=== PATIENT | female | born 1945 | race Caucasian/White ===

== ENCOUNTER → 2023-10-10 07:24 | Outpatient (REF) | payer MEDICARE, BC, SELFPAY ==
[2023-10-10 08:27] LABS: % Basophils 0.8 % (0-2); % Eosinophils 2.2 % (0-6); % Immature Granulocytes 0.2 % (0-0.5); % Lymphocytes 31.8 % (20.5-51.1); % Monocytes 11.2 % (1.7-9.3); % Neutrophils 53.8 % (42.2-75.2); Absolute Eosinophils 0.1 10^3/uL (0-0.7); Absolute Lymphocytes 1.6 10^3/uL (1.2-3.4); Absolute Monocytes 0.6 10^3/uL (0.1-0.6); Absolute Neutrophils 2.7 10^3/uL (1.4-6.5); Hematocrit 43.6 % (37.0-47.0); Hemoglobin 14.8 g/dL (12.0-16.0); Mean Corp Hgb Conc. 33.9 g/dL (33.0-37.0); Mean Corpuscular Hgb 31.3 pg (27.0-31.0); Mean Corpuscular Volume 92.2 fL (81.0-99.0); Mean Platelet Volume 11.4 fL (7.4-10.4); Nucleated Red Blood Cells % 0 %; Platelet Count 227 10^3/uL (130-400); Red Blood Cell Count 4.73 10^6/uL (4.20-5.40); Red Cell Dist. Width 12.4 % (11.5-14.5); White Blood Cell Count 5.1 10^3/uL (4.8-10.8)
[2023-10-10 09:09] LABS: ALT (SGPT) 13 U/L (0-35); AST (SGOT) 23 U/L (14-36); Alkaline Phosphatase 64 U/L (38-126); Blood Urea Nitrogen 21 mg/dl (7-17); C-Reactive Protein < 5.00 mg/L (0.0-10.00); Calcium 9.8 mg/dl (8.4-10.2); Carbon Dioxide 26 mmol/L (22-30); Chloride 105 mmol/L (98-107); Glucose 80 mg/dl (70-99); Magnesium 2.1 mg/dl (1.6-2.3); Phosphorus 4.2 mg/dl (2.5-4.5); Potassium 4.4 mmol/L (3.5-5.1); Sodium 139 mmol/L (135-145); Total Bilirubin 1.2 mg/dl (0.2-1.3); Total Protein 6.1 g/dl (6.3-8.2); eGFR > 60.00
[2023-10-10 09:26] LABS: Vitamin D, 25-OH*** 58.5 ng/mL (30-80)
[2023-10-10 09:31] LABS: Erythrocyte Sed Rate 3 mm/hour (0-20)
[2023-10-10 09:39] LABS: TSH Reflex To Free T4 2.88 uIU/ml (0.47-4.68)
[2023-10-10 10:15] LABS: Folate > 20.0 ng/ml (2.76-20); Vitamin B12 371 pg/ml (239-931)
== END ==
LOC: REG 07:24
PROVIDERS: ATTENDING PHYSICIAN Nurse Practitioner Adult Health
DX: R41.3 Other amnesia (principal)
CPT/HCPCS: 36415; 80053; 82306; 82607; 82746; 83735; 84100; 84443; 85025; 85652; 86140

== ENCOUNTER → 2023-12-11 13:33 | Outpatient (REF) | payer MEDICARE, BC, SELFPAY | LOC: HWWDC 13:33 | PROVIDERS: ATTENDING PHYSICIAN Nurse Practitioner Adult Health | DX: Z12.31 Encounter for screening mammogram for malignant neoplasm of breast (principal); M85.89 Other specified disorders of bone density and structure, multiple sites | CPT/HCPCS: 77063; 77067; 77080 ==

== ENCOUNTER → 2024-03-29 14:35 | Outpatient (REF) | payer MEDICARE, BC, SELFPAY | LOC: PAVMRI 14:35 | PROVIDERS: ATTENDING PHYSICIAN Nurse Practitioner Adult Health | DX: R41.3 Other amnesia (principal) | CPT/HCPCS: 70551 ==

== ENCOUNTER → 2024-06-08 12:45 | Outpatient (REF) | payer MEDICARE, BC, SELFPAY | LOC: HWRAD 12:45 | PROVIDERS: ATTENDING PHYSICIAN Nurse Practitioner Family | DX: R07.81 Pleurodynia (principal) | CPT/HCPCS: 71101 ==

== ENCOUNTER 2024-06-17 16:23 | Emergency (ER) | payer MEDICARE, BC, SELFPAY ==
[2024-06-17 16:32] VITALS: BP 191/75
[2024-06-17 16:41] LABS: Glucose - Point of Care 85 mg/dl (70-99)
[2024-06-17 17:02] VITALS: BP 174/85
[2024-06-17 17:12] VITALS: BMI 24.0
[2024-06-17 17:30] LABS: Hematocrit 41.2 % (37.0-47.0); Hemoglobin 13.7 g/dL (12.0-16.0); Mean Corp Hgb Conc. 33.3 g/dL (33.0-37.0); Mean Corpuscular Hgb 29.8 pg (27.0-31.0); Mean Corpuscular Volume 89.8 fL (81.0-99.0); Mean Platelet Volume 11.2 fL (7.4-10.4); Platelet Count 273 10^3/uL (130-400); Red Blood Cell Count 4.59 10^6/uL (4.20-5.40); Red Cell Dist. Width 12.4 % (11.5-14.5); White Blood Cell Count 7.1 10^3/uL (4.8-10.8)
[2024-06-17 17:38] LABS: ALT (SGPT) 14 U/L (0-35); AST (SGOT) 23 U/L (14-36); Albumin 4.6 g/dl (3.5-5.0); Alkaline Phosphatase 79 U/L (38-126); Blood Urea Nitrogen 18 mg/dl (7-17); Calcium 9.5 mg/dl (8.4-10.2); Carbon Dioxide 24 mmol/L (22-30); Chloride 103 mmol/L (98-107); Estimated Creatinine Clearance 42 ml/min; Glucose 90 mg/dl (70-99); Potassium 4.7 mmol/L (3.5-5.1); Sodium 135 mmol/L (135-145); Total Bilirubin 0.7 mg/dl (0.2-1.3); Total Protein 6.9 g/dl (6.3-8.2); eGFR > 60.00
[2024-06-17 18:00] VITALS: BP 175/87
--- NOTE | 2024-06-17 18:00 | ED.GENMED ---
History of Present Illness
General
Chief Complaint: Blood Pressure Problem
Source: patient
Exam Limitations: none
Time Seen by Provider: 06/17/24 16:52
History of Present Illness
History of Present Illness:
This is 78-year-old female with history of hypertension who presents after her daughter felt at home on the phone she was not quite herself. The patient does admit she has recent headache and admits she fell a few days ago. She is unable to figure
out whether or not the headaches are prior to the fall or since the fall. Her daughter then asked the neighbor to bring her to the emergency department today. The patient was seen by her primary care doctor and was noted to be hypertensive. The
patient does admit that she feels little tremulous and feel like her memory is not sharp. She is not really sure when that started. No fevers. No chest pain. No motor weakness in the arms or legs. No numbness or tingling. No urinary symptoms.
Past History
Past History
ED Past Medical History: COPD and HTN
ED Past Surgical History: Gynecological, Tonsilectomy and Urological (Bladder sling)
Social History
Tobacco: Non-smoker
Alcohol: None
Drug: None
Phy Exam
Physical Exam
Physical Exam:
CONSTITUTIONAL Patient alert and oriented to person, place and time. Well-appearing. Vital signs reviewed.
HEAD atraumatic, normocephalic.
EYES eyelids normal to inspection, Extraocular muscles intact, Conjunctiva normal, Sclera normal.
NECK normal range of motion, Trachea midline, no jugular venous distention.
RESPIRATORY CHEST No respiratory distress noted, Chest expansion equal, Bilateral breath sounds clear.
CARDIOVASCULAR regular rate and rhythm, Heart sounds normal.
ABDOMEN No distention.
BACK normal inspection, no obvious deformities
UPPER EXTREMITY range of motion normal, Motor strength normal, no cyanosis, no edema.
LOWER EXTREMITY range of motion normal, Motor strength normal, no cyanosis, no edema.
NEURO Speech normal, No focal motor deficits, Devol coma scale 15, Cranial Nerves intact to screening exam. No pronator drift. Normal [id number] bilaterally.
SKIN skin warm, dry, and normal in color.
Course
Orders/Labs/Results
Orders:
Orders
06/17/24 16:37
Electrocardiogram (*1) Urgent
Reason for Study: Hypertension, Benign
EKG- Treatment ONCE
06/17/24 17:15
Complete Blood Count/No Diff Urgent
Comprehensive Metabolic Panel Urgent
06/17/24 17:20
CT Head W/o Iv Contrast Urgent
Comment:
Reason For Exam: WONG, change in MS, recent fall
06/17/24 18:25
Urinalysis Reflex To Culture Urgent
Date Specimen was Collected: 06/17/24
Time Specimen was Collected: 17:13
Abnormal Lab Results
06/17/24
17:15
MPV 11.2 H fL
(7.4-10.4)
BUN 18 H mg/dl
(7-17)
06/17/24 17:15
06/17/24 17:15
Vital Signs
Initial and Last Documented VS:
Initial Vital Signs
Temp Pulse Resp BP Pulse Ox
98.7 F 70 18 191/75 97
06/17/24 16:32 06/17/24 16:32 06/17/24 16:32 06/17/24 16:32 06/17/24 16:32
Last Documented Vital Signs
Temp Pulse Resp BP Pulse Ox
98.7 F 64 18 183/66 96
06/17/24 16:32 06/17/24 20:00 06/17/24 20:00 06/17/24 20:00 06/17/24 20:00
MDM/Problems Addressed
Differential Diagnosis Includes:
UTI, electrolyte imbalance, renal failure, subdural hematoma, adrenal hemorrhage, CVA, hyponatremia
MDM/Problems Addressed:
Medication reaction, uncontrolled hypertension, cognitive impairment
*Radiology
Radiology exam reviewed: preliminary read by ED provider (No obvious intracranial hemorrhage) and radiology read reviewed
*Pulse Oximetry
Patient hypoxic: no
*EKG
Interpreted by ED Provider?: Yes
Interpretation: normal
Rate: normal
Rhythm: sinus
[place]: normal axis
QRS Pattern: normal QRS
Ischemia: no ischemia
*[employer] Intern Interpretation
Rate: normal
Interpretation: normal
Rhythm: sinus
*Critical Care Note
Total Time (30-74mins, 75-104mins- exclusive of procedures): Not Applicable
Data Reviewed
Source: patient and family
Patient Management
Escalation/DeEscalation of care consider admission/obs:
Case was also discussed with the patient's daughters. The patient's daughter states that they were not concerned about the way she sounded but in general have been worried about her cognitive impairment. In fact she had an outpatient study
including an MRI and she was diagnosed with mild cognitive impairment. Patient's daughters were worried about her elevated blood pressure and her tremulousness. They report that she also has been more depressed. They have offered for her to move
in with one of the daughters. She did recently get started on Wellbutrin. Question whether this is the etiology of her tremulousness. Her doctor did advise her to take an extra dose of her losartan but at this point we will just increase the
daily dose to the higher dose of losartan. She will keep a log at home. She is nonfocal exam and she is excited to go home. She is awake and alert. Daughter at bedside. They will follow-up with her PCP. Copy of her CT scan was given to the
patient for outpatient follow-up
ED Attending Note
-
Portions of this chart may have been created with voice recognition software.� Occasional wrong word or��sound alike� substitutions may have occurred due to the inherent limitations of voice recognition software.
Discharge Plan
Departure
Patient Disposition: Home (Routine Discharge)
Date of Disposition: 06/17/24
Time of Disposition: 20:26
Patient with high blood pressure during this ER visit?: Yes
Discharge Problem:
Tremulousness, Uncontrolled hypertension
Instructions: High Blood Pressure (DC)
Prescriptions:
No Action
losartan 25 mg Tablet
25 mg PO BID
loratadine [Claritin] 10 mg Tablet
10 mg PO DAILYPRN PRN (Reason: allergies)
cyclobenzaprine 10 mg Tablet
5 mg PO BID PRN (Reason: muscle spasm) Qty: 20 0RF
polyethylene glycol 3350 [HealthyLax] 17 gram Powder In Packet
17 g PO DAILY Qty: 0 0RF
acetaminophen [Pain Relief ES (acetaminophen)] 500 mg Tablet
1,000 mg PO Q8H PRN (Reason: pain) Qty: 0 0RF
pantoprazole 40 mg Tablet,Delayed Release (Dr/Ec)
40 mg PO DAILY Qty: 7 0RF
prednisone 10 mg tablet
10 mg PO DIRECTED Qty: 15 0RF
Rx Instructions:
40 mg 2 days, 30 mg 2 days, 10 mg one day and stop
lorazepam 0.5 mg Tablet
0.5 mg PO HS Qty: 0 0RF
Referrals:
Luna Stevens CRNP [Family Provider] -
Activity Restrictions/Additional Instructions:
Possible medication reaction
Please increase your losartan as discussed. Please keep a log at home of your blood pressure to follow-up with your PCP. Return immediately for chest pain, shortness of breath, motor weakness, vision changes, change in mentation or any other
concerns.
Interventions
Interventions:
*Risk Screen - Suicide Last Done: 06/17/24 16:32
*General Assessment Last Done: 06/17/24 16:32
*Neglect/Abuse Screening Last Done: 06/17/24 16:32
*ED- Fall Risk Assessment Last Done: 06/17/24 17:10
*ED COVID-19 Vaccine History Last Done: 06/17/24 17:10
ED- Neurological Assessment Last Done: 06/17/24 17:10
Discharge Date and Time
Print Language: SAMOAN
[2024-06-17 18:33] LABS: Urine Albumin Negative (Neg - Trace); Urine Bilirubin Negative (Negative); Urine Character Clear (Clear); Urine Color Yellow; Urine Glucose Negative (Negative); Urine Ketone Negative (Negative); Urine Leukocyte Negative (Negative); Urine Nitrite Negative (Negative); Urine Occult Blood Negative (Negative); Urine Urobilinogen Negative (Neg - 1+)
[2024-06-17 20:00] VITALS: BP 183/66
== END 2024-06-17 20:51 | disposition home or self-care (01) ==
LOC: EMR 16:23
PROVIDERS: EMERGENCY PHYSICIAN Emergency Medicine; FAMILY PHYSICIAN Nurse Practitioner Adult Health
DX: R25.1 Tremor, unspecified (principal); I10 Essential (primary) hypertension; J44.9 Chronic obstructive pulmonary disease, unspecified
CPT/HCPCS: 99284; 70450; 80053; 81003; 82962; 85027; 93005

== ENCOUNTER → 2024-09-22 07:18 | Outpatient (REF) | payer MEDICARE, BC, SELFPAY ==
--- NOTE | 2024-09-22 16:36 | EEG.RPT ---
Electroencephalogram Report
Recording
Date of EE09/22/24
Type of EEG: Routine
Length of EEG recordin minutes
Done with Video Recording: Yes
Patient Status: Outpatient
Recording Conditions: Awake and Drowsy
Hyperventilation Performed: No
Photic Stimulation Performed: Yes
Report
LESS THAN 1 HOUR EEG INTERPRETATION:
Unremarkable EEG for age
CLINICAL CORRELATION:
A normal EEG does not rule out a diagnosis of epilepsy. If clinical suspicion for seizure persists, a prolonged recording may be warranted.
Clinical correlation is advised.
METHODS:
A 21 channel digitized electroencephalogram (EEG) was performed using the 10/20 international system of electrode placement and one-lead of ECG recorded. The [employer] quantitative EEG system was utilized.
ELECTROENCEPHALOGRAPHER IMPRESSION(S):
Quality of study
Good
Background
There was an unremarkable anterior-posterior voltage gradient of alpha frequency.
With eye opening the background activity changed to a low voltage mixture of frequencies.
There were no significant asymmetries of background activity noted.
Sleep
Drowsiness present
Photic Stimulation
No activation
ECG
Normal sinus rhythm
== END ==
LOC: EEG 07:18
PROVIDERS: ATTENDING PHYSICIAN Psychiatry & Neurology Neurology; FAMILY PHYSICIAN Nurse Practitioner Adult Health
DX: R56.9 Unspecified convulsions (principal)
CPT/HCPCS: 95816

== ENCOUNTER → 2025-01-23 07:30 | Outpatient (REF) | payer MEDICARE, BC, SELFPAY ==
[2025-01-23 09:43] LABS: Hematocrit 44.2 % (37.0-47.0); Hemoglobin 14.3 g/dL (12.0-16.0); Mean Corp Hgb Conc. 32.4 g/dL (33.0-37.0); Mean Corpuscular Volume 94.0 fL (81.0-99.0); Nucleated Red Blood Cells % 0 %; Platelet Count 256 10^3/uL (130-400); Red Cell Dist. Width 11.9 % (11.5-14.5)
[2025-01-23 10:01] LABS: ALT (SGPT) 14 U/L (0-35); AST (SGOT) 19 U/L (14-36); Albumin 4.3 g/dl (3.5-5.0); Alkaline Phosphatase 61 U/L (38-126); Blood Urea Nitrogen 12 mg/dl (7-17); Calcium 9.4 mg/dl (8.4-10.2); Carbon Dioxide 28 mmol/L (22-30); Chloride 107 mmol/L (98-107); Glucose 94 mg/dl (70-99); HDL Cholesterol 84 mg/dl; LDL Cholesterol, Calculated 103 mg/dl; Potassium 4.5 mmol/L (3.5-5.1); Sodium 141 mmol/L (135-145); Total Protein 6.6 g/dl (6.3-8.2); Very Low Density Lipoprotein 16 mg/dl (0-30); eGFR > 60.00
[2025-01-23 10:51] LABS: Vitamin B12 282 pg/ml (239-931)
== END ==
LOC: HWLAB 07:30
PROVIDERS: ATTENDING PHYSICIAN Nurse Practitioner Adult Health
DX: I10 Essential (primary) hypertension (principal); R41.3 Other amnesia
CPT/HCPCS: 36415; 80053; 80061; 82607; 84443; 85025